=== PATIENT | female | born 1975 | race Caucasian/White ===

== ENCOUNTER 2018-05-02 10:32 | Emergency (ER) | payer SELFPAY ==
[2018-05-02] MEDS ORDERED: Adacel (T-DAP) 0.5 ML VIAL ONE (11:16)
[2018-05-02] MEDS ORDERED: Ibuprofen 200 MG TAB ONE (11:16)
--- NOTE | 2018-05-02 12:04 | RAD ---
3 VIEW LEFT HAND: Date: 05/02/18 INDICATION: Laceration, injury, pain. FINDINGS: There is no fracture or dislocation. No radiopaque foreign body. IMPRESSION: No acute osseous abnormality left hand. POS: [facility]
[2018-05-02] MEDS ORDERED: Bacitracin Zinc 1 Packet ONE (13:53)
== END 2018-05-02 14:04 | disposition home or self-care (01) ==
LOC: ERS 10:32
DX: S61.412A Laceration without foreign body of left hand, initial encounter (principal); Z23 Encounter for immunization; F41.9 Anxiety disorder, unspecified; F32.9 Major depressive disorder, single episode, unspecified; W26.8XXA Contact with other sharp object(s), not elsewhere classified, initial encounter
CPT/HCPCS: 12001; 90471; 90715